=== PATIENT | male | born 1985 | race Caucasian/White ===

== ENCOUNTER 2018-09-01 07:20 | Observation (INO) ==
[2018-09-01] MEDS ORDERED: Aspirin 81 MG TAB.CHEW PO ONE (07:33)
[2018-09-01 07:48] LABS: Basophils % 0.7 %; Eosinophils # 0.2 K/mcL (0.0-0.6); Eosinophils % 4.4 %; Hemoglobin 15.3 g/dL (12.9-16.9); Immature Granulocytes % 0.4 % (0-4); Lymphocytes # 2.3 K/mcL (0.6-4.6); Lymphocytes % 41.4 %; Mean Corpuscular HGB Conc 32.6 g/dL (31.6-35.5); Mean Corpuscular Hemoglobin 28.1 pg (28.0-33.3); Mean Corpuscular Volume 86.4 fL (83.0-100.0); Mean Platelet Volume 9.7 fL (9.4-12.4); Monocytes # 0.9 K/mcL (0.0-1.3); Monocytes % 16.4 %; Platelet Count 233 K/mcL (140-400); Red Blood Count 5.44 M/mcL (4.19-5.50); Red Cell Distribution Width 12.3 % (11.5-14.5); Segmented Neutrophils % 36.7 %; White Blood Count 5.5 K/mcL (4.3-11.1)
[2018-09-01 07:56] LABS: INR 0.9; Prothrombin Time 10.4 Seconds (9.4-12.1)
[2018-09-01 07:59] LABS: Activated Partial Thrombo Time 30.1 Seconds (26.0-36.0)
--- NOTE | 2018-09-01 08:05 | Emergency Department Note ---
Disposition Clinical Impression: Chest pain Qualifiers: Chest pain type: unspecified Qualified Code(s): R07.9 - Chest pain, unspecified Disposition: Admitted As Inpatient Condition: Fair Time of Disposition: 09:19 General Adult HPI - General Chief complaint: ED Chest Pain Stated complaint: CP/Left arm numbness Time Seen by Provider: 09/01/18 07:24 Source: patient Limitations: no limitations - History of Present Illness Pain Scale: 3 - Related Data Home Medications Medication Instructions Recorded Confirmed Buprenorphine HCl/Naloxone HCl 1 each SL DAILY 09/01/18 09/01/18 [Suboxone 12 mg-3 mg Sl Film] FLUoxetine HCl [Fluoxetine HCl] 60 mg PO DAILY 09/01/18 09/01/18 Melatonin 10 mg PO DAILY 09/01/18 09/01/18 Allergies Allergy/AdvReac Type Severity Reaction Status Date / Time trazodone Allergy Rash Verified 09/01/18 07:28 Past Medical History - Past Medical History Medical history: Reports: no medical history Surgical history: Reports: no surgical history Psychiatric history: Reports: anxiety, depression, PTSD - Social History Smoking Status: Current every day smoker Smokeless Tobacco Status: Yes Alcohol use: Reports: none Drug use: Reports: marijuana Physical Exam - General Limitations: no limitations General appearance: alert, in no apparent distress Course Vital Signs Temperature 98.0 F 09/01/18 07:25 Pulse Rate 76 09/01/18 07:25 Respiratory Rate 16 09/01/18 07:25 Blood Pressure 142/89 09/01/18 07:25 O2 Sat by Pulse Oximetry 96 09/01/18 07:25 Temperature 98.0 F 09/01/18 07:25 Pulse Rate 79 09/01/18 08:00 Respiratory Rate 16 09/01/18 09:00 Blood Pressure 112/70 09/01/18 09:00 O2 Sat by Pulse Oximetry 94 09/01/18 08:00 Oxygen Delivery Oxygen Delivery Room Air Medical Decision Making - Lab Data Result diagrams: 09/01/18 07:35 09/01/18 07:35 Lab Results 09/01/18 09/01/18 09/01/18 Range/Units 07:35 07:35 07:35 WBC 5.5 (4.3-11.1) K/mcL RBC 5.44 (4.19-5.50) M/mcL Hgb 15.3 (12.9-16.9) g/dL Hct 47.0 (37.5-50.1) % MCV 86.4 (83.0-100.0) fL MCH 28.1 (28.0-33.3) pg MCHC 32.6 (31.6-35.5) g/dL RDW 12.3 (11.5-14.5) % Plt Count 233 (140-400) K/mcL MPV 9.7 (9.4-12.4) fL Immature Gran % 0.4 (0-4) % Seg Neutrophils % 36.7 % Lymphocytes % 41.4 % Monocytes % 16.4 % Eosinophils % 4.4 % Basophils % 0.7 % Neutrophils # 2.0 (1.6-8.9) K/mcL Lymphocytes # 2.3 (0.6-4.6) K/mcL Monocytes # 0.9 (0.0-1.3) K/mcL Eosinophils # 0.2 (0.0-0.6) K/mcL Basophils # 0.0 (0.0-0.2) K/mcL PT 10.4 (9.4-12.1) Seconds INR 0.9 APTT 30.1 (26.0-36.0) Seconds Sodium 139 (136-145) mEq/L Potassium 4.5 (3.5-5.1) mEq/L Chloride 103 (98-107) mEq/L Carbon Dioxide 27 (23-29) mEq/L BUN 17 (6-20) mg/dL Creatinine 0.99 (0.70-1.30) mg/dL Est GFR ( Amer) > 60 (> 60) Est GFR (Non-Af Amer) > 60 (> 60) BUN/Creatinine Ratio 17 (6-26) Glucose 102 (70-105) mg/dL Calculated Osmolality 290 (280-300) Calcium 8.9 (8.6-10.3) mg/dL Troponin I < 0.03 (< 0.04) ng/mL Attestation Statement - Attestation Attestation: I, Aniket Cervantes DO, examined this patient [id number] and my medical decision-making was reviewed with Dr. Derrick Larose, Resident Physician. I agree with the documented findings, disposition and treatment plan as described except to the extent set forth below. I personally supervised and was present for the boyle/critical portions of the procedures completed by the resident documented below. Please see my progress notes for details. 32-year-old male presents emergency room with 2 days with intermittent chest pain. Symptoms are and left-sided chest and left shoulder. He has pain that radiates down his left arm. Numbness and tingling in the posterior aspect of the forearm into the fingers. Patient denies any falls trauma or injury. Patient is otherwise denying chest pain during my evaluation but it fluctuates. He has had pain even while he was here in the emergency room initially. EKG was collected on arrival there is concern for either J-point of flexion versus elevation in 2 contiguous leads. Patient does have a cardiac history in his family. There is no reciprocal changes. We did run this by the on-call district plant superintendent Dr. Lobo. He recommended admission for stress test. Patient does not have any diagnostic findings at this point. He also has what appears to be radicular symptoms in the shoulder. With numbness and tingling into the hand. He did start a new job where he is doing heavy exertion. He also lives weights. Vital signs reviewed and are stable. Patient is alert he is oriented. He denies any other symptoms or issues at this time. Lungs are clear. Heart is regular. He does not have reproducible symptoms with palpation the left chest wall. He has no rashes lesions trauma or injury. He has full range of motion the bilateral shoulders elbows and wrists. EKG CBC chemistry troponin wi ll be collected. EKG is documented by the resident physician's note. Patient is otherwise going to require admission at the request of cardiology after the workup is established. Intervention will be provided as needed. Patient is otherwise stable. See detailed documentation of the physical exam, medical intervention, medical decision-making disposition the resident physician's note. 0900 Patient has negative troponin. The hospitalist Dr. Paul reviewed the case and no other concerns or issues at this point. Patient is otherwise clinically stable. He will be admitted for ultrasound and stress test if needed. No other acute etiology noted during the treatment course. Patient will be monitored here in emergency department until admission processes established. Nitroglycerin did help slightly with the symptoms but dropped his blood pressure. Pain medication has been ordered at this time.
[2018-09-01 08:07] LABS: BUN/Creatinine Ratio 17 (6-26); Blood Urea Nitrogen 17 mg/dL (6-20); Calcium 8.9 mg/dL (8.6-10.3); Carbon Dioxide 27 mEq/L (23-29); Chloride 103 mEq/L (98-107); Glucose 102 mg/dL (70-105); Osmolality,Calculated 290 (280-300); Potassium 4.5 mEq/L (3.5-5.1); Sodium 139 mEq/L (136-145); Troponin I < 0.03 ng/mL (< 0.04); eGFR For African Americans > 60 (> 60); eGFR For Non-African Americans > 60 (> 60)
--- NOTE | 2018-09-01 08:07 | Emergency Department Note ---
Disposition Clinical Impression: Chest pain Qualifiers: Chest pain type: unspecified Qualified Code(s): R07.9 - Chest pain, unspecified Disposition: Admitted As Inpatient Condition: Fair Forms: ED Satisfaction Letter Time of Disposition: 08:46 Chest Pain HPI - General Chief Complaint: ED Chest Pain Stated Complaint: CP/Left arm numbness Time Seen by Provider: 09/01/18 07:24 Source: patient Mode of arrival: ambulatory Limitations: no limitations Vital Signs Reviewed: Yes Nursing Notes Reviewed: Yes - History of Present Illness HPI Narrative: 32-year-old male presents to the emergency department complaining of chest pain says mainly in the left side radiating down into his left arm. Said the radiation started today that is what caused him to come in. Described the pain is 6/10 comes and goes but is more worse with exertion. He has no nausea no vomiting. Father did have a heart attack and required stent placement at 33 years old. Patient only has anxiety and depression issues. Otherwise has no other medical problems take any other medication. He does smoke approximately 4-5 cigarettes per day for the last 10 years. No history of hypertension. No history of high cholesterol. Patient otherwise has no other complaints at this time. Severity scale (1-10): 3 - Related Data Home Medications Medication Instructions Recorded Confirmed Buprenorphine HCl/Naloxone HCl 1 each SL DAILY 09/01/18 09/01/18 [Suboxone 12 mg-3 mg Sl Film] FLUoxetine HCl [Fluoxetine HCl] 60 mg PO DAILY 09/01/18 09/01/18 Melatonin 10 mg PO DAILY 09/01/18 09/01/18 Allergies Allergy/AdvReac Type Severity Reaction Status Date / Time trazodone Allergy Rash Verified 09/01/18 07:28 All systems ED: reviewed and negative except as stated. Review of Systems: As Per HPI Chest Pain PMH - Past Medical History Medical history: Reports: no medical history Surgical history: Reports: no surgical history Psychiatric history: Reports: anxiety, depression, PTSD - Social History Smoking Status: Current every day smoker Alcohol use: Reports: none Drug use: Reports: marijuana Physical Exam - General Limitations: no limitations General appearance: alert, in no apparent distress - Head Head exam: atraumatic, normocephalic, normal inspection - Eye Eye exam: Present: normal appearance, PERRL, EOMI - ENT ENT exam: normal exam, normal oropharynx, mucous membranes moist - Neck Neck exam: Present: normal inspection, full ROM, trachea midline - Chest Chest inspection: Present: normal inspection, symmetric chest wall rise. Absent: tenderness - Respiratory Respiratory exam: Present: normal lung sounds bilaterally - Cardiovascular Cardiovascular exam: Present: regular rate, normal rhythm, normal heart sounds - Abdominal Exam Abdominal exam: Present: soft, Non-Tender. Absent: tenderness, distention, guarding, rebound, rigidity - Extremities Exam Extremities exam: Present: normal inspection, full ROM. Absent: tenderness, pedal edema - Back Exam Back exam: Present: normal inspection, full ROM. Absent: tenderness, CVA tenderness (R), CVA tenderness (L) - Neurological Exam Neurological exam: Present: alert, oriented X3 - Skin Skin exam: Present: warm, dry, intact, normal color Course Course Narrative: We will do chest pain workup including CBC BMP troponin as well as an EKG and chest x-ray. We will give patient full dose aspirin as well as a nitroglycerin trial. - Consultations Consultation #1: Spoke with the on-call intellectual property paralegal sent him the EKGs and he recommends nitroglycerin aspirin and admitting to the hospital for her size stress test if able and they will consult and see the patient. Time: 07:50 Vital Signs Temperature 98.0 F 09/01/18 07:25 Pulse Rate 76 09/01/18 07:25 Respiratory Rate 16 09/01/18 07:25 Blood Pressure 142/89 09/01/18 07:25 O2 Sat by Pulse Oximetry 96 09/01/18 07:25 Temperature 98.0 F 09/01/18 07:25 Pulse Rate 79 09/01/18 08:00 Respiratory Rate 16 09/01/18 07:25 Blood Pressure 133/78 09/01/18 08:00 O2 Sat by Pulse Oximetry 94 09/01/18 08:00 Oxygen Delivery Oxygen Delivery Room Air Chest Pain - [facility] Narrative Medical decision making narrative: 32-year-old male presents to the emergency department with chest pain. Does have family history of younger age cardiac history is definite heart attack at 35. Patient's chest pain has been on for 2 days but now has left arm pain and numbness with it. EKG had mild changes but did not meet STEMI criteria. Patient's chest pain did mildly go down after receiving 1 nitroglycerin he also received half dose aspirin as he took 2 chewable aspirins at home. Spoke with cardiology recommended admission and they will consult and will do walking stress test. Troponin was negative all other labs were negative. Spoke with the hospitalist Dr. Tavarez who agreed to admit the patient to their service. Patient admitted in stable condition. Chest X-Ray 09/01/18 07:25 IMPRESSION: 1. No active pulmonary disease. D/ / Owen Kaplan MD / Owen Kaplan MD Interpreting Provider: Owen Kaplan MD - Medical Records Medical records reviewed: Yes I reviewed the patient's medical records. - Lab Data Lab results reviewed: Yes I reviewed the patient's lab results. Result diagrams: 09/01/18 07:35 09/01/18 07:35 Lab Results 09/01/18 09/01/18 09/01/18 Range/Units 07:35 07:35 07:35 WBC 5.5 (4.3-11.1) K/mcL RBC 5.44 (4.19-5.50) M/mcL Hgb 15.3 (12.9-16.9) g/dL Hct 47.0 (37.5-50.1) % MCV 86.4 (83.0-100.0) fL MCH 28.1 (28.0-33.3) pg MCHC 32.6 (31.6-35.5) g/dL RDW 12.3 (11.5-14.5) % Plt Count 233 (140-400) K/mcL MPV 9.7 (9.4-12.4) fL Immature Gran % 0.4 (0-4) % Seg Neutrophils % 36.7 % Lymphocytes % 41.4 % Monocytes % 16.4 % Eosinophils % 4.4 % Basophils % 0.7 % Neutrophils # 2.0 (1.6-8.9) K/mcL Lymphocytes # 2.3 (0.6-4.6) K/mcL Monocytes # 0.9 (0.0-1.3) K/mcL Eosinophils # 0.2 (0.0-0.6) K/mcL Basophils # 0.0 (0.0-0.2) K/mcL PT 10.4 (9.4-12.1) Seconds INR 0.9 APTT 30.1 (26.0-36.0) Seconds Sodium 139 (136-145) mEq/L Potassium 4.5 (3.5-5.1) mEq/L Chloride 103 (98-107) mEq/L Carbon Dioxide 27 (23-29) mEq/L BUN 17 (6-20) mg/dL Creatinine 0.99 (0.70-1.30) mg/dL Est GFR ( Amer) > 60 (> 60) Est GFR (Non-Af Amer) > 60 (> 60) BUN/Creatinine Ratio 17 (6-26) Glucose 102 (70-105) mg/dL Calculated Osmolality 290 (280-300) Calcium 8.9 (8.6-10.3) mg/dL Troponin I < 0.03 (< 0.04) ng/mL - Radiology Data Radiology results reviewed: Yes I reviewed the patient's radiology results. - EKG Data EKG attestation: Yes I reviewed and interpreted this EKG. EKG results narrative: EKG done at 0 728 review myself and attending shows sinus rhythm at rate 75, OH 163, QRS 96, QTC 402. There is mild elevation of almost 1 mm in leads 1 and aVL there is no reciprocal changes no other signs of ischemia and no signs of any T-wave changes otherwise. No hypertrophy, heart strain, heart block. No WPW/Brugada/HOCM. EKG looks similar possibly worsening of the aVL and compared to old one done 03/31/17. I do not think this is a STEMI at this time. Heart Score - Score History: Moderately Suspicious EKG: Non Specific repolarisation Disturbance Age: Less than 45 Risk Factors: 1-2 risk factors Troponin: Less than normal limit HEART Score Total: 3 Attestation Statement - Attestation Attestation: I, Aniket Cervantes DO, examined this patient [id number] and my medical decision-making was reviewed with Dr. Derrick Larose, Resident Physician. I agree with the documented findings, disposition and treatment plan as described except to the extent set forth below. I personally supervised and was present for the boyle/critical portions of the procedures completed by the resident documented below. Please see my progress notes for details.
[2018-09-01] MEDS ORDERED: Aspirin 81 MG TAB.CHEW PO STA (08:12)
[2018-09-01] MEDS: Nitroglycerin 0.4 MG TAB.SUBL SL PRN (08:12)
[2018-09-01] MEDS ORDERED: *HR* HYDROcodone/Acet 5/325 mg TABLET PO ONE (09:18)
[2018-09-01] MEDS ORDERED: Naloxone 0.4 MG/ML INJ IVP PRN (09:46)
[2018-09-01] MEDS ORDERED: Ondansetron 4 MG/2 ML VIAL IVP PRN (09:46)
--- NOTE | 2018-09-01 09:51 | Internal Med History&Physical ---
Date of Encounter: 09/01/18 Time of Encounter: 09:51 Internal Medicine - H&P: HPI Chief complaint: CP History of present illness: Mr. Gale is a 32 year old male with best medical history of drug abuse and strong family history of coronary artery disease, who presented to the ER with intermittent chest pain that is radiating to left shoulder and left arm associated with numbness and tingling of his forearm and fingers. The patient describes the pain as pressure-like, with no aggravating factor or alleviating factors. EKG was obtained and revealed J-point of flexion versus elevation in 2 contiguous leads. cardiac enzymes were obtained and first it was no significant abnormalities, the patient was admitted to rule out carotid artery syndrome. At bedside the patient was complaining of persistent chest pain and worsening of his left arm numbness and tingling, cardiology was contacted and Dr. Lobo kindly responded immediately to the bedside, and EKG was obtained and reviewed by and he recommended to start calcium channel bharati, obtain urine drug s creen and scheduled the patient for stress test in a.m. Past Med Surg Social Fam HX - Past Medical History Medical history: no medical history Psychiatric history: anxiety, depression, PTSD - Past Surgical History Surgical History: no surgical history Additional surgical history: right hand sx - Social History Smoking Status: Current every day smoker Smokeless Tobacco Status: Yes Alcohol use: none Drug use: marijuana Internal Medicine - H&P: Meds BuPROPion XL (24 HR) [Wellbutrin Xl] 150 mg PO DAILY 09/02/18 [History] Buprenorphine HCl/Naloxone HCl [Buprenorphin-Naloxon 8-2 mg Sl] 1 tab SL DAILY 09/02/18 [History] Buprenorphine HCl/Naloxone HCl [Buprenorphn-Naloxn 2-0.5 mg Sl] 2 tab SL DAILY 09/02/18 [History] FLUoxetine HCl [Prozac] 60 mg PO DAILY 09/02/18 [History] Ibuprofen [Ibu] 600 mg PO TID PRN 09/02/18 [History] Melatonin [Melatin] 9 mg PO HS 09/02/18 [History] Multivitamin with Minerals [One-A-Day Maximum Formula] 1 tab PO DAILY 09/02/18 [History] SUMAtriptan Succinate [Imitrex] 100 mg PO AD PRN MDD 200MG/24HRS 09/02/18 [History] hydrOXYzine HCl [Hydroxyzine HCl] 50 mg PO QID PRN 09/02/18 [History] Allergy/AdvReac Type Severity Reaction Status Date / Time trazodone Allergy Rash Verified 09/01/18 07:28 All Systems PM: A 10-system review of systems was performed and is negative for pertinent findings except as documented above in the HPI. - Constitutional Vitals: Temp Pulse Resp BP Pulse Ox 98.0 F 79 16 112/70 94 09/01/18 07:25 09/01/18 08:00 09/01/18 09:00 09/01/18 09:00 09/01/18 08:00 General appearance: Present: A&O X 3 Exam: ` - Head Head exam: Present: atraumatic, normocephalic - Neck Neck exam general surgery: Present: supple, trachea midline. Absent: lymphadenopathy - Respiratory Respiratory exam: Present: CTAB. Absent: accessory muscle use, rales, rhonchi, wheezes - Cardiovascular Cardiovascular exam: Present: RRR, +S1, +S2. Absent: diastolic murmur, gallop, rubs, systolic murmur - Extremities Exam Extremities exam: Present: warm, radial pulses palpable and symmetrical. Absent: calf tenderness, cyanotic, pedal edema Internal Med - H&P Results - Labs CBC & Chem 7: 09/02/18 02:25 09/02/18 02:25 Labs: Short CBC 09/01/18 Range/Units 07:35 WBC 5.5 (4.3-11.1) K/mcL Hgb 15.3 (12.9-16.9) g/dL Hct 47.0 (37.5-50.1) % Plt Count 233 (140-400) K/mcL Neutrophils # 2.0 (1.6-8.9) K/mcL BMP 09/01/18 07:35 Sodium 139 Potassium 4.5 Chloride 103 Carbon Dioxide 27 BUN 17 Creatinine 0.99 Glucose 102 Calcium 8.9 Cardiac Enzymes 09/01/18 Range/Units 07:35 Troponin I < 0.03 (< 0.04) ng/mL - Impressions ITS Impressions Chest X-Ray 09/01/18 07:25 IMPRESSION: 1. No active pulmonary disease. D/ / Owen Kaplan MD / Owen Kaplan MD Interpreting Provider: Owen Kaplan MD - Assessment and Plan (1) Atypical chest pain Status: Acute Assessment and plan: Chest pain strong family history and history of drug abuse rule out coronary artery syndrome, EKG was obtained and revealed J-point of flexion versus elevation in 2 contiguous leads. cardiac enzymes were obtained and first it was no significant abnormalities. Differential diagnoses include: *Muskuloskeletal CP - myofascial strain, costochondritis *GERD *Esophageal spasm *Cocain abuse PLAN: - cardiac enzymes x 2 q 8 hr - EKG now and in AM - ASA - O2 by NC to keep SpO2 greater than 92% - UA - Urine toxic screen - CBCD, BMP in AM - Fasting lipids - Morphine 2 mg IV q 2-4 hr PRN chest pain - Amlodipine 5 mg po daily as per cardiology - 2D Echo (2) Family history of premature coronary artery disease Status: Acute Assessment and plan: The patient reported that his father was diagnosed with myocardial infarction in his mid 30s. (3) History of drug abuse Status: Acute Assessment and plan: The patient has history of cocaine abuse however he confirmed that he quit long time ago. - Time Spent With Patient Total time spent is greater than 50% in coordination of care (as documented) at patient's floor/unit and/or counseling patient:
[2018-09-01] MEDS ORDERED: *HR* LORazepam 2 MG/ML VIAL IVP ONE (11:24)
[2018-09-01] MEDS: amLODIPine 5 MG TABLET PO SCH (12:28)
[2018-09-01 12:55] LABS: Amphetamine Screen,Urine Negative ng/mL (Cutoff=1000); Barbiturate Screen,Urine Negative ng/mL (Cutoff=200); Benzodiazepines Screen,Urine Negative ng/mL (Cutoff=200); Cannabinoid Screen,Urine Negative ng/mL (Cutoff = 50); Cocaine Screen,Urine Negative ng/mL (Cutoff= 300); Opiate Screen,Urine Negative ng/mL (Cutoff=300); Phencyclidine Screen,Urine Negative ng/mL (Cutoff=25)
--- NOTE | 2018-09-01 14:34 | Cardiology Consult Note ---
Date of Encounter: 09/01/18 Time of Encounter: 11:00 Assessment and Plan (1) Atypical chest pain Current Visit: Yes Status: Acute I recommend to obtain urine toxicology to rule out cocaine use. Start amlodipine 5 mg daily for possible coronary vasospasm. Continue to trend troponin and serial EKGs. Obtain echocardiogram. If troponin comes back posit lilo we would plan for cardiac catheterization. Otherwise exercise stress test tomorrow. Further recommendations to follow after exercise stress test. (2) Family history of premature coronary artery disease Current Visit: Yes Status: Acute Family history of premature coronary artery disease in first-degree relative, warrants consideration for coronary calcium scoring Discussion w patient/family: The assessment and plan as outlined above was discussed with the patient and/or family members who expressed understanding and agreement. All questions were answered. Thank you for involving us in the care of your patient. Please call with any questions. History of Present Illness Consult date: 09/01/18 History of present illness: Mr. Gale is a 32 year old male 32-year-old pleasant gentleman currently, current everyday cigarettes smoker, presenting with intermittent chest pain at rest over the past 2 days. Described chest pain is dull aching 5 out of 10, radiating to his left arm. Associated shortness of breath. No associated diaphoresis, nausea or vomiting. His father had HI in his late 30s. No family history of sudden cardiac . Patient denies current use of illicit substances, although he has used cocaine in the past, last use being 4 years ago. EKG done in the ER showed sinus rhythm with ST-T changes suggestive of early repolarization. No dynamic changes on serial EKG monitoring. First troponin is negative. Past Med Surg Social Fam HX - Past Medical History Medical history: no medical history Additional medical history: iate smoker, opiate Psychiatric history: anxiety, depression, PTSD - Past Surgical History Surgical History: no surgical history Additional surgical history: right hand sx - Social History Smoking Status: Current every day smoker Smokeless Tobacco Status: Yes Alcohol use: none Drug use: marijuana Medications and Allergies Buprenorphine HCl/Naloxone HCl [Suboxone 12 mg-3 mg Sl Film] 1 each SL DAILY 09/01/18 [History] FLUoxetine HCl [Fluoxetine HCl] 60 mg PO DAILY 09/01/18 [History] Melatonin 10 mg PO DAILY 09/01/18 [History] Allergy/AdvReac Type Severity Reaction Status Date / Time trazodone Allergy Rash Verified 09/01/18 07:28 All Systems Review: The remainder of the systems were reviewed and are negative - Constitutional Constitutional: no chills, no fever(s) - EENT Eyes: no blurred vision - Cardiovascular Cardiovascular: no claudication, no diaphoresis, no dyspnea at rest, no dyspnea on exertion, no irregular heart rhythm, no orthopnea, no slow heart rate, no syncope - Respiratory Respiratory: no cough - Gastrointestinal Gastrointestinal: no abdominal pain - Neurological Neurological: no abnormal speech - Psychiatric Psychiatric: no anxiety - Hematological/Lymphatic Hematologic/Lymphatic: no easy bleeding Physical Examination General: Conversant HEENT: Atraumatic Neck: No JVD Cardiac: Reg Rate and Rhythm, Normal S1 and S2, No Murmur Lungs: Normal Breath Sounds, No Wheeze, Rales, Rhonchi Neuro: Alert and responsive, No focal deficits noted Abdomen: Soft Musculoskeletal: No Chest Wall Tenderness Extremities: No Clubbing, No Edema, Normal Pulses Results 09/01/18 07:35 09/01/18 07:35 Lab Results 09/01/18 09/01/18 09/01/18 07:35 07:35 07:35 WBC 5.5 Hgb 15.3 Hct 47.0 Plt Count 233 INR 0.9 APTT 30.1 Sodium 139 Potassium 4.5 Chloride 103 Carbon Dioxide 27 BUN 17 Creatinine 0.99 Glucose 102 Calcium 8.9 Magnesium Troponin I < 0.03 09/01/18 09/01/18 09:57 09:57 WBC Hgb Hct Plt Count INR APTT Sodium Potassium Chloride Carbon Dioxide BUN Creatinine Glucose Calcium Magnesium 2.2 Troponin I < 0.03 - EKG Interpretation EKG results cardiology: personally reviewed (Sinus rhythm, ST-T changes suggestive of early repolarization) Consult Discharge Plan - Plan [facility]: [facility]Primary Care Provider[facility] -
[2018-09-01] MEDS: Acetaminophen 325 MG TABLET PO PRN (18:32)
[2018-09-01] MEDS ORDERED: Melatonin 3 MG TABLET PO PRN (21:00)
[2018-09-02 03:02] LABS: Basophils % 0.6 %; Eosinophils # 0.2 K/mcL (0.0-0.6); Eosinophils % 4.3 %; Hematocrit 45.2 % (37.5-50.1); Hemoglobin 14.5 g/dL (12.9-16.9); Immature Granulocytes % 0.2 % (0-4); Lymphocytes # 2.2 K/mcL (0.6-4.6); Lymphocytes % 44.2 %; Mean Corpuscular HGB Conc 32.1 g/dL (31.6-35.5); Mean Corpuscular Hemoglobin 27.3 pg (28.0-33.3); Mean Platelet Volume 9.9 fL (9.4-12.4); Monocytes # 0.8 K/mcL (0.0-1.3); Monocytes % 16.4 %; Neutrophils # 1.7 K/mcL (1.6-8.9); Platelet Count 236 K/mcL (140-400); Red Blood Count 5.32 M/mcL (4.19-5.50); Red Cell Distribution Width 12.6 % (11.5-14.5); Segmented Neutrophils % 34.3 %; White Blood Count 4.9 K/mcL (4.3-11.1)
[2018-09-02 03:09] LABS: INR 0.9; Prothrombin Time 9.9 Seconds (9.4-12.1)
[2018-09-02 03:11] LABS: Activated Partial Thrombo Time 30.1 Seconds (26.0-36.0)
[2018-09-02 03:20] LABS: Alanine Aminotransferase 27 Units/L (7-52); Albumin 3.6 g/dL (3.5-5.7); Albumin/Globulin Ratio 1.4 (1.1-2.2); Alkaline Phosphatase 55 Units/L (34-104); Aspartate Amino Transferase 22 Units/L (13-39); BUN/Creatinine Ratio 13 (6-26); Bilirubin,Total 0.3 mg/dL (0.3-1.0); Blood Urea Nitrogen 14 mg/dL (6-20); Calcium 8.8 mg/dL (8.6-10.3); Carbon Dioxide 28 mEq/L (23-29); Chloride 105 mEq/L (98-107); Chol/HDL Ratio 6.4 (0-4.9); Cholesterol 148 mg/dL (< 200); Globulin 2.6 g/dL (2.4-3.5); Glucose 125 mg/dL (70-105); HDL Cholesterol 23 mg/dL (40-59); LDL Cholesterol,Calculated 88 mg/dL (0-99); Osmolality,Calculated 292 (280-300); Phosphorous 4.2 mg/dL (2.7-4.5); Sodium 140 mEq/L (136-145); Total Protein 6.2 g/dL (6.4-8.9); Triglycerides 183 mg/dL (< 150); eGFR For African Americans > 60 (> 60); eGFR For Non-African Americans > 60 (> 60)
[2018-09-02] MEDS: Acetaminophen 325 MG TABLET PO PRN (04:34)
--- NOTE | 2018-09-02 05:36 | Electrocardiograph Report ---
[employer] [facility] Test Date: 2018-09-01 Pat Name: Paulo Gale Department: [id number] Room: 46 Gender: M Building Construction Foreman: : 1985 Requested By: Aniket Cervantes Order Number: [id number] Reading MD: Karson Feliciano Measurements Intervals [place] Rate: 75 P: 47 WA: 163 QRS: 46 QRSD: 96 T: 28 QT: 360 QTc: 402 Interpretive Statements Sinus rhythm Electronically Signed On 09-02-2018 5:34:52 EDT by Karson Feliciano
[2018-09-02] MEDS: *HR* Heparin 5,000 UNIT/ML VIAL SQ SCH ×2 (06:13→17:06)
--- NOTE | 2018-09-02 08:17 | Cardiology Progress Note ---
Date of Encounter: 09/02/18 Time of Encounter: 08:15 Assessment and Plan (1) Chest pain Current Visit: Yes Status: Acute Per Cardiology: Troponins negative 4. Echo and standard stress test pending. All questions answered. Qualifiers: Chest pain type: unspecified Qualified Code(s): R07.9 - Chest pain, unspecified (2) History of drug abuse Current Visit: Yes Status: Acute Per Cardiology: +Buprenorphine. Discussion w patient/family: The assessment and plan as outlined above was discussed with the patient and/or family members who expressed understanding and agreement. All questions were answered. Thank you for involving us in the care of your patient. Please call with any questions. Subjective Principal diagnosis: CP Interval history: Seen today with family at bedside. Reports left-sided chest discomfort and left arm numbness about 4 out of 10. Denies any other concerns or complaints. Objective Vital Signs, Last 4 Hours Temp Pulse Resp BP Pulse Ox 09/02/18 06:46 97.4 F L 76 15 111/61 95 General: Conversant, No Apparent Distress HEENT: Atraumatic, Normocephaly, Mucus Membranes Moist Neck: No JVD, Normal carotid pulses Cardiac: Reg Rate and Rhythm, Normal S1 and S2, No Murmur Lungs: Normal Breath Sounds, No Wheeze, Rales, Rhonchi Neuro: Alert and responsive, No focal deficits noted Abdomen: Soft, Non-Tender Skin: No rashes noted on visualized skin Musculoskeletal: No Chest Wall Tenderness Extremities: No Clubbing, No Cyanosis, No Edema, Normal Pulses Results 09/02/18 02:25 09/02/18 02:25 Lab Results Laboratory Tests 09/01/18 09/01/18 09/01/18 07:35 09:57 09:57 Hgb Hct INR Creatinine Est GFR (Non-Af Amer) Magnesium 2.2 Troponin I < 0.03 < 0.03 Ur Buprenorphine Scrn 09/01/18 09/01/18 09/01/18 12:05 15:48 22:34 Hgb Hct INR Creatinine Est GFR (Non-Af Amer) Magnesium Troponin I < 0.03 < 0.03 Ur Buprenorphine Scrn Positive H 09/02/18 09/02/18 09/02/18 02:25 02:25 02:25 Hgb 14.5 Hct 45.2 INR 0.9 Creatinine 1.04 Est GFR (Non-Af Amer) > 60 Magnesium Troponin I Ur Buprenorphine Scrn ITS Impressions Chest X-Ray 09/01/18 07:25 IMPRESSION: 1. No active pulmonary disease. D/ / Owen Kaplan MD / Owen Kaplan MD Interpreting Provider: Owen Kaplan MD Active Medications Acetaminophen (Tylenol) 650 mg PO Q6HR PRN PRN Reason: Mild Pain/Fever Stop: 03/03/19 09:47 Last Admin: 09/02/18 04:34 Dose: 650 mg Documented by: Amlodipine Besylate (Norvasc) 5 mg PO DAILY [facility]; Protocol Stop: 03/03/19 11:46 Last Admin: 09/01/18 12:28 Dose: 5 mg Documented by: Fluoxetine HCl (Prozac) 60 mg PO DAILY [facility] Stop: 03/04/19 09:01 Heparin Sodium (Porcine) (Heparin) 5,000 unit SQ Q12HCO [facility] Stop: 03/04/19 06:01 Last Admin: 09/02/18 06:13 Dose: 5,000 unit Documented by: Melatonin (Melatonin) 9 mg PO HS PRN PRN Reason: Insomnia Stop: 09/06/18 21:01 Naloxone HCl (Narcan) 0.4 mg IVP Q2MPRN PRN PRN Reason: SEE COMMENTS Stop: 03/03/19 09:47 Nitroglycerin (Nitroglycerin) 0.4 mg SL Q5MIN PRN PRN Reason: Chest Pain Stop: 03/03/19 07:42 Last Admin: 09/01/18 08:12 Dose: 0.4 mg Documented by: Non-Formulary Medication (Buprenorphine Hcl/Naloxone Hcl [Suboxone 12 Mg-3 Mg Sl Film]) 1 each SL DAILY [facility] Stop: 03/04/19 09:01 Ondansetron HCl (Zofran) 4 mg IVP Q8HR PRN PRN Reason: Nausea And Vomiting Stop: 03/03/19 09:47 - Imaging and Cardiology Stress Test: pending Echo: pending Consult Discharge Plan - Plan [facility]errals: [facility] [Primary Care Provider] -
[2018-09-02] MEDS: NALOXONE HCL SL SCH (10:41)
[2018-09-02] MEDS: BUPRENORPHINE HCL SL SCH (10:41)
[2018-09-02] MEDS: FLUoxetine 20 MG CAPSULE PO SCH (10:46)
[2018-09-02] MEDS: amLODIPine 5 MG TABLET PO SCH (10:47)
[2018-09-02] MEDS: Nitroglycerin 0.4 MG TAB.SUBL SL PRN (11:45)
--- NOTE | 2018-09-02 12:56 | Event Note ---
Date of Encounter: 09/02/18 Time of Encounter: 12:55 - Cardiology Event Note Per discussion with Dr. Lobo, echo and stress test ok. Will sign off, reconsult as needed, follow-up arranged in outpatient setting to coordinate cardiac CTA.
--- NOTE | 2018-09-02 13:01 | Internal Med Progress Note ---
Hospitalist Progress Note - Encounter Date of Encounter: 09/02/18 Time of Encounter: 11:30 - Subjective Interval History: When seen today patient was resting in his bed. He continued to complain of some minor chest pain and shortness of breath. Denied any nausea or vomiting. Denied any abdominal pain. Denied any fever. Patient did note that he has s welling in his left upper extremity for the past 2 weeks. Says the swelling has been off and on. Denies any pain from the swelling however he does note that he has some numbness. - Exam Vitals: Temp Pulse Resp BP Pulse Ox 97.6 F 77 15 106/66 94 09/02/18 10:51 09/02/18 10:51 09/02/18 10:51 09/02/18 10:51 09/02/18 10:51 Exam: GENERAL APPEARANCE: Well developed, well nourished, alert and cooperative, and appears to be in no acute distress. HEAD: normocephalic. EYES: vision is grossly intact. EARS: hearing grossly intact. NOSE: No nasal discharge. THROAT: Oral cavity and pharynx normal. No inflammation, swelling, exudate, or lesions. CARDIAC: Normal S1 and S2. No S3, S4 or murmurs. Rhythm is regular. There is no peripheral edema, cyanosis or pallor. Extremities are warm and well perfused. Capillary refill is less than 2 seconds. LUNGS: Clear to auscultation and percussion without rales, rhonchi, wheezing or diminished breath sounds. ABDOMEN: Positive bowel sounds. Soft, nondistended, nontender. No guarding or rebound. No masses. MUSKULOSKELETAL: Adequately aligned spine. ROM intact spine and extremities. No joint tenderness. Normal muscular development. BACK: Examination of the spine reveals normal gait and posture, no spinal deformity, symmetry of spinal muscles, without tenderness, decreased range of motion or muscular spasm. EXTREMITIES: LUE had noticeable swelling when compared to the right one. Swelling mostly in the biceps area. Skin appeared taut. Radial pulse was +2/4. Had normal capillary refill. No pallor. LOWER EXTREMITY: Examination of both feet reveals all toes to be normal in size and symmetry, normal range of motion, normal sensation with distal capillary filling of less than 2 seconds without tenderness, swelling, discoloration, nodules, weakness or deformity. NEUROLOGICAL: Decreased sensation in the LUE. 5/5 strength in UE b/l. Pulses i ntact and symmetrical in the UE b/l. SKIN: Skin normal color, texture and turgor with no lesions or eruptions. PSYCHIATRIC: The mental examination revealed the patient was oriented to person, place, and time. - Assessment and Plan (1) Atypical chest pain Current Visit: Yes Status: Acute Assessment and Plan: Strong family history and history of drug abuse. UDS was only positive for bubrenorphine. Patient is on suboxone treatment. Tropnins have been negative x 4. EKG done in the ER showed sinus rhythm with ST-T changes suggestive of early repolarization. No dynamic changes on serial EKG monitoring. Started on amlodipne for vasospams. CXR showed no infiltrate. Echocardiogram showed an EF of 55% with mild LVH and no evidence of PE. No electrolyte abnormalities. Magensium was WNL. Liver enzymes WNL. Cardiology consulted. Plan: - Awaiting stress test results. - Start on nitro drip. - Telemetry. - C/W amlodipine. (2) Swelling of left upper extremity Current Visit: Yes Status: Acute Assessment and Plan: Admits to intermittent swelling for the pain 2 weeks. Denies any pain, but admits to some numbness/tingling. On exam, his radial pulses were intact. No pallor. Swelling was most pronounced in the biceps region. He had decreased sensation of his LUE. 5/5 muscular strength. No pain. Plan: - Ultrasound of the LUE to r/o DVT. - Continue to monitor. (3) Family history of premature coronary artery disease Current Visit: Yes Status: Acute Assessment and Plan: Family states that father and grandfather have had CAD at young ages. (4) History of drug abuse Current Visit: Yes Status: Acute Assessment and Plan: The patient has history of cocaine abuse however he confirmed that he quit long time ago. Currently on suboxone. UDS was only positive for buprenorphine. DVT Prophylaxis: - Heparin SubQ. - Time Spent with Patient Total time spent is greater than 50% in coordination of care (as documented) at patient's floor/unit and/or counseling patient: Internal Medicine: Result - Labs CBC & Chem 7: 09/02/18 02:25 09/02/18 02:25 Labs: Short CBC 09/02/18 Range/Units 02:25 WBC 4.9 (4.3-11.1) K/mcL Hgb 14.5 (12.9-16.9) g/dL Hct 45.2 (37.5-50.1) % Plt Count 236 (140-400) K/mcL Neutrophils # 1.7 (1.6-8.9) K/mcL BMP 09/02/18 02:25 Sodium 140 Potassium 4.0 Chloride 105 Carbon Dioxide 28 BUN 14 Creatinine 1.04 Glucose 125 H Calcium 8.8 Cardiac Enzymes 09/01/18 09/01/18 Range/Units 15:48 22:34 Troponin I < 0.03 < 0.03 (< 0.04) ng/mL Liver Function 09/02/18 Range/Units 02:25 Total Bilirubin 0.3 (0.3-1.0) mg/dL AST 22 (13-39) Units/L ALT 27 (7-52) Units/L Alkaline Phosphatase 55 (34-104) Units/L Albumin 3.6 (3.5-5.7) g/dL - ABG Interpretation ABG results: PT/INR, D-dimer PT 9.9 Seconds (9.4-12.1) 09/02/18 02:25 - Impressions Impressions Echocardiogram 09/01/18 09:49 Impressions: LVEF 55%. Mild concentric left ventricular hypertrophy. Normal left ventricular diastolic function. Normal right ventricular structure and function. No evidence of pulmonary hypertension. No significant valvular dysfunction. Left Ventricular Wall Motion: Rest Echo Findings All wall segments showed normal motion. Findings: Study Quality * Technically adequate exam. ECG Findings * Normal sinus rhythm. Left Ventricle * LVEF 55%. * Mild concentric left ventricular hypertrophy. * Normal LV chamber size and function. * Normal left ventricular diastolic function. Right Ventricle * Normal right ventricular structure and function. Left Atrium * Normal left atrial size. Right Atrium * Normal right atrial size. Aortic Valve * Trileaflet aortic valve. * Trileaflet aortic valve with normal function. * No aortic regurgitation. * No aortic stenosis. Mitral Valve * Normal mitral valve structure. * No mitral regurgitation. * No mitral stenosis. Tricuspid Valve * No tricuspid stenosis. * No evidence of pulmonary hypertension. * Mild tricuspid regurgitation. Pulmonic Valve * Trace pulmonic regurgitation. Aorta * Normally sized aortic root. Pericardium * The pericardium appears normal. IVC * The IVC is not well evaluated. Pulmonary Artery * Normal visualized portions of the main pulmonary artery. Consult Discharge Plan - Plan [facility]errals: [facility] [Primary Care Provider] -
--- NOTE | 2018-09-02 15:33 | Event Note ---
<Tyrell Lee - Last Filed: 09/02/18 15:30> Date of Encounter: 09/02/18 Time of Encounter: 15:20 Doppler of LUE was negative for DVT. 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 On exam, he had a positive Spurling's test on the L side. Will order XR of the cervical spin to r/o any fracture or abnormality. Patient will need to f/u with his PCP for possible MRI if needed. <Artem Macdonald - Last Filed: 09/03/18 14:07> Date of Encounter: 09/03/18 Pt's L arm discomfort may be related to cervical spine issues. Recommend he follow with PCP for further work up.
[2018-09-03] MEDS: *HR* Heparin 5,000 UNIT/ML VIAL SQ SCH (06:04)
[2018-09-03 07:00] VITALS: BP 111/63
[2018-09-03] MEDS: FLUoxetine 20 MG CAPSULE PO SCH (09:43)
[2018-09-03] MEDS: amLODIPine 5 MG TABLET PO SCH (09:43)
[2018-09-03] MEDS: NALOXONE HCL SL SCH (09:46)
[2018-09-03] MEDS: BUPRENORPHINE HCL SL SCH (09:46)
--- NOTE | 2018-09-03 10:01 | Discharge Summary ---
Orders not resulted at time of discharge: Pending orders 09/01/18 11:08 EKG [ECG 12 lead ECG] [ECG] Stat 09/03/18 09:45 Urinalysis Reflex Cult & Micro [URIN] Routine Date of Encounter: 09/03/18 Time of Encounter: 08:00 - Discharge Diagnosis (1) Atypical chest pain Priority: Primary Status: Acute (2) Swelling of left upper extremity Priority: Primary Status: Acute (3) Family history of premature coronary artery disease Priority: Secondary Status: Acute (4) History of drug abuse Priority: Secondary Status: Acute Hospital course: Mr. Gale is a 32 year old male history of drug abuse and strong family history of coronary artery disease, who presented to the ER with intermittent chest pain that is radiating to left shoulder and left arm associated with numbness and tingling of his forearm and fingers. EKG was obtained and revealed J-point of flexion versus elevation in 2 contiguous leads. Initial cardiac enzymes were negative. He was admitted for further evaluation. Cardiology was consulted and upon reevaluation of the EKG, it showed sinus rhythm with ST-T changes suggestive of early repolarization. No dynamic changes on serial EKG monitoring. Subsequent troponin levels were negative x 4. Started on amlodipne for vasospams. CXR showed no infiltrate. Echocardiogram showed an EF of 55% with mild LVH and no evidence of PE. No electrolyte abnormalities. Exercise stress t est was negative for ischemia. Cardiology recommended follow-up in the outpatient with them for cardiac CTA. Patient was also noted to having LUE swelling during his hospital course. He says that has been a intermittently chronic issue for the past 2 months. Denied any recent trauma. Upon examination, the patient did have noticeable swelling particularly around the biceps. No erythema. His pulses were +2/4, no pallor, and demonstrated normal muscular strength. He was complaining of some numbness/tingling on the left hand. an ultrasound was ordered and was negative for a DVT of the LUE. There was suspicion for possible cervical pathology maybe causing neurovascular compromise. An x-ray of the cervical spine was ordered which did not reveal any significant findings. Patient will need to follow-up with his PCP for likely physical therapy and eventual MRI or CT evaluation. When seen this morning, patient says his chest pain has improved since yesterday, although he still admits to some mild background chest discomfort. He denies any fever, cough, or wheezing. Denies any abdominal pain. He did have some nausea earlier in the morning, but denies any emesis. Patient is also complaining of some urinary retention. We will order a UA on him as well as refer him to urology for which he can follow-up in the patient. Patient will also need to follow-up with his PCP in the next 3-5 days. Warned patient that if he experiences any increase in chest pain, nausea, vomiting, fever, increased numbness or pallor of the LUE to contact his PCP immediately or go to the ER. - Time Spent with Patient Total time spent providing and/or coordinating discharge services: Time spent: Greater than 30 minutes - Discharge Medications Prescriptions: Continued Multivitamin with Minerals [One-A-Day Maximum Formula] 1 tab PO DAILY Melatonin [Melatin] 9 mg PO HS Ibuprofen [Ibu] 600 mg PO TID PRN PRN Reason: Pain hydrOXYzine HCl [Hydroxyzine HCl] 50 mg PO QID PRN PRN Reason: Anxiety FLUoxetine HCl [Prozac] 60 mg PO DAILY BuPROPion XL (24 HR) [Wellbutrin Xl] 150 mg PO DAILY Buprenorphine HCl/Naloxone HCl [Buprenorphn-Naloxn 2-0.5 mg Sl] 2 tab SL DAILY Buprenorphine HCl/Naloxone HCl [Buprenorphin-Naloxon 8-2 mg Sl] 1 tab SL DAILY SUMAtriptan Succinate [Imitrex] 100 mg PO AD PRN MDD 200MG/24HRS PRN Reason: Migraine Headache Home Medications: BuPROPion XL (24 HR) [Wellbutrin Xl] 150 mg PO DAILY 09/02/18 [History] Buprenorphine HCl/Naloxone HCl [Buprenorphin-Naloxon 8-2 mg Sl] 1 tab SL DAILY 09/02/18 [History] Buprenorphine HCl/Naloxone HCl [Buprenorphn-Naloxn 2-0.5 mg Sl] 2 tab SL DAILY 09/02/18 [History] FLUoxetine HCl [Prozac] 60 mg PO DAILY 09/02/18 [History] Ibuprofen [Ibu] 600 mg PO TID PRN 09/02/18 [History] Melatonin [Melatin] 9 mg PO HS 09/02/18 [History] Multivitamin with Minerals [One-A-Day Maximum Formula] 1 tab PO DAILY 09/02/18 [History] SUMAtriptan Succinate [Imitrex] 100 mg PO AD PRN MDD 200MG/24HRS 09/02/18 [History] hydrOXYzine HCl [Hydroxyzine HCl] 50 mg PO QID PRN 09/02/18 [History] Allergies/Adverse Reactions: Allergy/AdvReac Type Severity Reaction Status Date / Time trazodone Allergy Rash Verified 09/01/18 07:28 Date of admission: 09/01/18 08:53 Primary care physician: [facility] Consults: 09/01/18 08:41 Consult to Cardiology [CONS] Stat Comment: Consulting Provider: Cardiology Era Reason for Consult: chest pain Time Notified: 08:42 Call Completed: Yes Discharging clinician: Tyrell Lee Anticipated date of discharge: 09/03/18 - Constitutional Vitals: Temp Pulse Resp BP Pulse Ox 97.6 F 65 15 111/63 95 09/03/18 06:56 09/03/18 06:56 09/03/18 06:56 09/03/18 06:56 09/03/18 06:56 General appearance: Present: A&O X 3 Exam: GENERAL APPEARANCE: Well developed, well nourished, alert and cooperative, and appears to be in no acute distress. HEAD: normocephalic. EYES: vision is grossly intact. EARS: hearing grossly intact. NOSE: No nasal discharge. THROAT: Oral cavity and pharynx normal. No inflammation, swelling, exudate, or lesions. CARDIAC: Normal S1 and S2. No S3, S4 or murmurs. Rhythm is regular. There is no peripheral edema, cyanosis or pallor. Extremities are warm and well perfused. Capillary refill is less than 2 seconds. LUNGS: Clear to auscultation and percussion without rales, rhonchi, wheezing or diminished breath sounds. ABDOMEN: Positive bowel sounds. Soft, nondistended, nontender. No guarding or rebound. No masses. MUSKULOSKELETAL: Adequately aligned spine. ROM intact spine and extremities. No joint tenderness. Normal muscular development. BACK: Examination of the spine reveals normal gait and posture, no spinal deformity, symmetry of spinal muscles, without tenderness, decreased range of motion or muscular spasm. EXTREMITIES: LUE had noticeable swelling when compared to the right one, however seems to have improved from yesterday. Swelling mostly in the biceps area. Skin does not appear taut anymore. Radial pulse was +2/4. Had normal capillary refill. No pallor. LOWER EXTREMITY: Examination of both feet reveals all toes to be normal in size and symmetry, normal range of motion, normal sensation with distal capillary filling of less than 2 seconds without tenderness, swelling, discoloration, nodules, weakness or deformity. NEUROLOGICAL: Decreased sensation in the LUE. 5/5 strength in UE b/l. Pulses intact and symmetrical in the UE b/l. SKIN: Skin normal color, texture and turgor with no lesions or eruptions. PSYCHIATRIC: The mental examination revealed the patient was oriented to person, place, and time. - Patient Status Disposition: Home, Self-Care Condition: Fair Functional capacity at discharge: independent ambulation Overall status at discharge: patient is progressing back to baseline - Discharge Instructions Instructions: Chest Pain (DC) Follow Up With: [facility] [Primary Care Provider] - (Unable to schedule appointment. Please call Tuesday to schedule hospital follow up appointment for 7-10 days from date of discharge.) LashellTuesday MD Hali [Non-Partnered Physician] - Camron Perez MD [Partnered Physician] - - Diet and Activity Activity: increase activity as tolerated Diet: regular diet
[2018-09-03 10:08] LABS: Bilirubin,Urine Negative (Negative); Blood,Urine Negative (Negative); Clarity,Urine Clear (Clear); Color,Urine Yellow (Yellow); Glucose,Urine (UA) Normal (Normal); Ketones,Urine Negative (Negative); Leukocyte Esterase,Urine Negative (Negative); Nitrite,Urine Negative (Negative); PH,Urine 6.5 pH Units (5.0-8.0); Protein,Urine Negative (Neg-Trace); Urobilinogen,Urine Normal (Normal)
== END 2018-09-03 12:11 | disposition home or self-care (01) ==
LOC: EMEROOARM 07:20 → 3BNU 07:20 → SUATTDRO 08:53 → 3BNU 09:10
PROVIDERS: ADMIT Internal Medicine Nephrology; ATTEND Internal Medicine